=== PATIENT | male | born 1995 | race Two or more races ===

== ENCOUNTER 2024-04-15 05:35 | Emergency (ER) | payer MEDICAID, OTHER ==
[~2024-04-15] VITALS: Ht 172.7 cm; Wt 111.6 kg
[~2024-04-15 05:35] MED LIST: DIPH25CA2 PO; PRED20TA2 PO
[2024-04-15 06:48] VITALS: BP 125/77; PULSE 66; RESP 20; TEMP 98.5; O2SAT 97
[2024-04-15] MEDS: TETANUS-DIPTH-ACEL PERTUSSIS 0.5ML SYR Tdap IM ONE (06:54)
== END 2024-04-15 07:02 | disposition home or self-care (01) ==
LOC: ER 05:35
DX: S61.210A Laceration without foreign body of right index finger without damage to nail, initial encounter (principal); W26.8XXA Contact with other sharp object(s), not elsewhere classified, initial encounter; Y93.89 Activity, other specified; Y92.89 Other specified places as the place of occurrence of the external cause; Y99.8 Other external cause status
CPT/HCPCS: 12002; 90471; 90715